=== PATIENT | female | born 1980 | race Caucasian/White ===

== ENCOUNTER 2017-02-11 05:17 | Emergency (ER) | payer BC ==
[2017-02-11 05:26] VITALS: BP 153/80
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
== END 2017-02-11 06:15 | disposition home or self-care (01) ==
LOC: ED 05:17
DX: S00.83XA Contusion of other part of head, initial encounter (principal); Y09 Assault by unspecified means; Y93.89 Activity, other specified; Y92.239 Unspecified place in hospital as the place of occurrence of the external cause; F17.210 Nicotine dependence, cigarettes, uncomplicated
CPT/HCPCS: 99284